=== PATIENT | female | born 1945 | race Caucasian/White ===

== ENCOUNTER 2020-10-25 09:46 | Emergency (ER) | payer MEDICARE, SELFPAY ==
[2020-10-25 09:54] VITALS: BP 139/76; PULSE 99; RESP 16; TEMP 36.2; O2SAT 95; BMI 29.0
--- NOTE | 2020-10-25 10:17 | ED_ITS ---
HPI - Fall General Chief Complaint: Fall Stated Complaint: concussion, tripped over granddaughter Wednesday Time Seen by Provider: 10/25/20 10:13 Source: patient Mode of arrival: Ambulatory Limitations: no limitations History of Present Illness HPI Narrative: Patient is a 75-year-old female not on anticoagulation here for evaluation 2 days after she tripped over her granddaughter and hit the left side of her head on a counter. There was no loss of consciousness. She states that last evening which is approximately 24 hours after the incident she started developed some nausea. Also has a slight headache and some ?fogginess ?in her head. No fevers. Has not tried anything for symptoms prior to arrival. No other injuries reported from the event. Related Data Previous Rx's Medication Instructions Recorded ondansetron 4 mg PO Q6H PRN #10 tab 10/25/20 Review of Systems Constitutional Constitutional: Denies fever(s) and Reports headache(s) Eyes Eyes: Denies blurry vision and Denies change in vision ENT Ears, Nose, Mouth, and Throat: Denies vertigo, Denies dizziness and Reports headache(s) Cardiovascular Cardiovascular: Denies chest pain, Denies syncope and Denies dyspnea Respiratory Respiratory: Denies dyspnea Gastrointestinal Gastrointestinal: Denies abdominal pain and Reports nausea Musculoskeletal Musculoskeletal: Denies tingling Integumentary/Breasts Skin/Breast: Denies lesions and Denies rash Neurologic Neurologic: Denies abnormal speech, Denies behavioral changes, Denies vertigo, Denies dizziness, Denies syncope, Reports headache(s) and Denies tingling Psychiatric Psychiatric: Denies anxiety and Denies behavioral changes Hematologic/Lymphatic On Anticoagulants: No Patient History Medical History Asthma Social History lives independently: Yes Exam Initial Vital Signs Initial Vital Signs: Vital Signs Temperature 97.2 F L 10/25/20 09:54 Pulse Rate 99 H 10/25/20 09:54 Respiratory Rate 16 10/25/20 09:54 Blood Pressure 139/76 10/25/20 09:54 Pulse Oximetry 95 10/25/20 09:54 Const General: cooperative, comfortable and well developed Limitations: mental status not altered HENFL Head: normal to inspection and normocephalic Eyes Pupils: PERRL Resp Effort & Inspection: normal respiratory effort Cardio Rate: regular rate Skin Lesions: no lesions Rashes: no rashes Neuro General: patient alert, patient awake and patient oriented x3 Cranial Nerves: CN's II-XI intact bilaterally Cognition: normal cognition Speech: speech normal Motor: muscle tone normal throughout Sensory Exam: no sensory deficits noted Extrem General: capillary refill normal Psych Appearance: grossly normal and well kempt Scores GCS Radha coma scale eye opening: Spontaneous [place] coma scale verbal response: Orientated [place] coma scale motor response: Obey commands Radha coma scale total score: 15 Course Orders Ordered: ED Orders 10/25/20 10:19 CT head/brain wo con Stat Vital Signs Vital signs: Vital Signs - 8 hr 10/25/20 09:54 Temperature 97.2 F L Pulse Rate 99 H Respiratory Rate 16 Blood Pressure 139/76 Pulse Oximetry 95 MDM - Fall Imaging Data CT scan - head: Radiologist's Impression: [address] [id number] Scan ReportSigned Patient: Kylah Baugh BMR#: [id number]: [id number]:[id number]/Sex: 75 / FDate of Service: 10/25/20Loc: EDAccession Number: [id number] Procedure: CT head/brain wo con Ordering Provider: Perry Gonzalez D.O. PROCEDURE: CT HEAD/BRAIN WO CON INDICATIONS: Fell hit left-sided head TECHNIQUE: Noncontrast 4.5 mm thick angled axial sections acquired from the foramen magnum to the vertex, with coronal and sagittal reformats. For radiation dose reduction, the following was used: automated exposure control, adjustment of mA and/or kV according to patient size. COMPARISON: None. FINDINGS: Image quality: Excellent. CSF spaces: Basal cisterns are patent. No extra-axial fluid collections. Ventricles are normal in size and shape. Brain: No midline shift. No intracranial masses or hemorrhage. [place]-white matter interface is normal. Skull and face: Calvarium and visualized facial bones are intact, without suspicious lesions. Sinuses: Visualized sinuses and mastoids are clear. IMPRESSION: No acute intracranial abnormality. Dictated by: Jessee Pruitt M.D. on 10/25/2020 at 10:37 Approved by: Jessee Pruitt M.D. on 10/25/2020 at 10:38 MDM Narrative Medical decision making narrative: Patient's head CT is unremarkable. She has no other injuries reported from the event. She is having quite a bit and nausea and so will send home with a prescription for Zofran. We did discuss concu ssions and post concussive syndromes. She will contact her primary provider for a follow-up. She expressed understanding and agreement with plan. Discharge Plan Departure Patient Disposition: Home Clinical Impression: Closed head injury, Concussion Instructions: Concussion, DI for Postconcussion Syndrome Activity Restrictions/Additional Instructions: You can take Tylenol and/or ibuprofen for any headaches. Use the nausea medicine as needed. I do recommend you contact your primary provider for a follow-up especially if your symptoms are not improving. You need to avoid hitting your head again and also avoiding activities that cause your symptoms do worsen. Return to the emergency department for any new or worsening symptoms Prescriptions: New ondansetron 4 mg tablet,disintegrating 4 mg PO Q6H PRN (Reason: nausea and vomiting) Qty: 10 RF: 0
[2020-10-25 10:54] VITALS: BP 123/63; PULSE 65; RESP 16; O2SAT 93
[2020-10-25] MEDS: ONDANSETRON 4 MG ODT SL (10:54)
== END 2020-10-25 10:56 | disposition home or self-care (01) ==
PROVIDERS: Emergency Provider Emergency Medicine
DX: S06.0X0A Concussion without loss of consciousness, initial encounter (principal); W01.198A Fall on same level from slipping, tripping and stumbling with subsequent striking against other object, initial encounter
CPT/HCPCS: 70450; 99284